=== PATIENT | male | born 1935 | race Caucasian/White ===

== ENCOUNTER 2019-02-01 21:07 | Emergency (ER) | payer MEDICARE ==
[~2019-02-01 21:07] MED LIST: ISOVUE-370 76%-LOCM 1 ML ONE
--- NOTE | 2019-02-01 21:54 | CT ---
BRAIN CT WITHOUT IV CONTRAST: 02/01/19 HISTORY: Head injury following trauma. FINDINGS: Mild atrophy and chronic white matter ischemic change. No mass, bleed, or other significant acute pro cess. IMPRESSION: No significant acute intracranial process. No mass or bleed. POS: [facility]
--- NOTE | 2019-02-01 21:57 | CT ---
CERVICAL SPINE CT SCAN WITHOUT IV CONTRAST: 02/01/19 HISTORY: Injury from trauma. Patchy bone demineralization. Generalized disc osteophytosis and facet arthrosis. No acute fracture o r facet dislocation. IMPRESSION: No acute fracture or facet dislocation. Significant generalized spondylosis. Bone demineralization. POS: [facility]
--- NOTE | 2019-02-01 22:03 | CT ---
CHEST, ABDOMEN AND PELVIC CT SCAN WITH IV CONTRAST THORACIC SPINE CT SCAN WITH IV CONTRAST LIMITED LUMBAR SPINE CT SCAN WITH IV CONTRAST LIMITED 02/01/19 HISTORY: Trauma Injury FINDINGS: CHEST, ABDOMEN AND PELVIC CT SCAN WITH IV CONTRAST: Minimal scattered linear and interstitial chronic lung changes. No pneumothorax or pleural effusion. No pericardial effusion. No mediastinal hematoma. The aorta appears unremarkable. Small hiatal hernia . The liver, pancreas, spleen, adrenal glands, are unremarkable. The kidneys showed no renal calculus o r acute obstruction. 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 No free intraperitoneal fluid or evidence for retroperitoneal hematoma. Bilateral fat containing in guinal hernias. IMPRESSION: No significant acute posttraumatic process in the chest, abdomen, or pelvis. THORACIC SPINE CT SCAN WITH IV CONTRAST LIMITED: IMPRESSION: Bone demineralization with severe spondylosis without acute fracture. LUMBAR SPINE CT SCAN WITH IV CONTRAST LIMITED: IMPRESSION: Bone demineralization with severe generalized spondylosis without acute fracture or dislocation. Findings are discussed with Dr. Bucio at 9:55 p.m. Code CR POS: [facility]
[2019-02-01] MEDS ORDERED: Ondansetron PF 4 MG/2 ML Vial ONE (22:30)
[2019-02-01] MEDS ORDERED: Adacel (T-DAP) 0.5 ML SYRINGE ONE (22:30)
[2019-02-01] MEDS ORDERED: Fentanyl 100 MCG/2 ML VIAL ONE (22:30)
--- NOTE | 2019-02-01 22:31 | RAD ---
Exam: Right shoulder 3 views: HISTORY: Injury from trauma COMPARISON: None FINDINGS: Prominent degenerative changes of the A/C joint and glenohumeral joint. No evidence for fracture, dislocation, or other significant acute osseous abnormality. IMPRESSION: No significant acute process.
--- NOTE | 2019-02-01 22:35 | RAD ---
Left shoulder 3 views: HISTORY: Injury from trauma There is some deformity of the distal left clavicle and AC joint and lateral acromium but all of this appears to be old and in part related to degenerative arthrosis. Glenohumeral joint degenerative changes. No evidence for acute fracture or dislocation. IMPRESSION: Some deformity in the region of the distal clavicle and acromion with AC joint arthrosis without acut e fracture or dislocation
== END 2019-02-01 23:11 | disposition home or self-care (01) ==
LOC: ERS 21:07
DX: S16.1XXA Strain of muscle, fascia and tendon at neck level, initial encounter (principal); S20.212A Contusion of left front wall of thorax, initial encounter; S40.019A Contusion of unspecified shoulder, initial encounter; S70.02XA Contusion of left hip, initial encounter; W11.XXXA Fall on and from ladder, initial encounter
CPT/HCPCS: 70450; 71260; 72125; 74177; 90471; 90715; 96361; 96374; 96375; G0390; J2405; J3010; Q9966